=== PATIENT | male | born 2000 | race Caucasian/White ===

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

== ENCOUNTER 2022-01-03 10:30 | Emergency (ER) | payer SELFPAY ==
[2022-01-03 10:44] VITALS: BP 130/75; PULSE 81; RESP 16; TEMP 36.8; O2SAT 99; BMI 23.1
[2022-01-03 10:49] VITALS: BP 130/75; PULSE 81; RESP 16; TEMP 36.8; O2SAT 99
--- NOTE | 2022-01-03 11:08 | XRR_ITS ---
PROCEDURE INFORMATION: Exam: XR Right Hand Exam date and time: 01/03/2022 11:16 AM Age: 21 years old Clinical indication: Injury or trauma; Other: He had a board drop on it; Blunt trauma (contusions or hematomas); Right; Injury date: A week ago; Patient HX: --rt. Hand pain x 1 week ago TECHNIQUE: Imaging protocol: Radiologic exam of the Right hand. Views: 3 or more views. COMPARISON: CR XR elbow RT min 3V* [id number] 01/06/2021 10:09 PM FINDINGS: Bones/joints: Normal. Soft tissues: Normal. XR/XR hand RT min 3V* [id number] IMPRESSION: No acute findings.
--- NOTE | 2022-01-03 11:28 | W.ED.EXTPRO ---
HPI - Extremity Problem General: Chief complaint: Extremity Injury, Upper Stated complaint: Right hand pain/injury Time Seen by Provider: 01/03/22 11:01 History of Present Illness: 21-year-old male presents with complaints of injury to his right hand especially the right fifth knuckle. Patient reports that 4 days ago he had a board drop on it. He thinks he might of broke it. He presents today because his significant other medium. Patient complains of painful range of motion. He has some mild swelling. He reports no other injuries. Associated symptoms: Deny chest pain, fever(s) or rash Review of Systems Const: Denies: fever(s) or chills Eyes: Denies: change in vision Card: Denies: chest pain or palpitations Resp: Denies: dyspnea or productive cough GI: Denies: abdominal pain, nausea or vomiting Musc: Reports: joint pain and joint swelling Skin/Breast: Reports: erythema; Denies: rash Neuro: Denies: headache(s) or numbness in extremities Physical Exam Const: COMMON NORMALS: no acute distress, average body habitus and patient oriented x3 HENMT: COMMON NORMALS: normocephalic, atraumatic and hearing grossly normal bilaterally HEAD & SCALP: normocephalic and atraumatic Eye: COMMON NORMALS: Equal, round and reactive pupils present and EOMs intact bilaterally PUPIL: Yes Equal, round and reactive pupils present Resp: COMMON NORMALS: normal respiratory effort, No retractions and No use of accessory muscles Cardio: COMMON NORMALS: regular rate and regular rhythm RATE: regular rate RHYTHM: regular rhythm Extremity: RIGHT UPPER EXTREMITY: Yes hand & digits (Tenderness to palpation right fifth knuckle with some swelling and painful ) Right hand and digits: Yes ROM exam (Painful, mild decreased) Neuro: COMMON NORMALS: patient oriented x3 Skin: NARRATIVE SKIN EXAM: Mild erythema and swelling over fifth knuckle Course Vital Signs: Vital signs: Vital Signs Temperature 98.2 F 01/03/22 10:49 Pulse Rate 81 01/03/22 10:49 Respiratory Rate 16 01/03/22 10:49 Blood Pressure 130/75 01/03/22 10:49 Pulse Oximetry 99 01/03/22 10:49 Oxygen Delivery Me thod 01/03/22 10:49 MDM - Extremity (Nontraumatic) Medical Decision Making Patient with no acute findings on x-ray. Patient with a hand contusion. Should use Tylenol, warm moist heat, ibuprofen and topical lidocaine as needed. Patient stable and discharged home Lab Data Radiology Impressions Hand X-Ray 01/03/22 11:08 IMPRESSION: No acute findings. Discharge Plan Discharge Patient Disposition: Home Clinical Impression: Contusion of hand, right Condition: Stable Discharge Orders: Discharge ED (Routine); Ordered 01/03/22 Ordered By: Paresh Purdy Discharge Diet: Usual diet Discharge Activity: Increase activity as tolerated Patient Instructions: Contusion, Opioid Safety, Pain Management Activity Restrictions/Additional Instructions: Warm moist heat 20 minutes at a time 3-4 times daily as needed for pain 4% topical lidocaine with menthol to affected area as directed on package as needed for pain Tylenol or ibuprofen as needed Follow-up with your primary care provider in 10 days if symptoms or not improving Coding Level of Care Code ED Retail Salesman for Dede Fwd Exam Detailed
[2022-01-03] MEDS: ketorolac 30 mg/mL INJ 15 MG IM (12:05)
== END 2022-01-03 12:23 | disposition home or self-care (01) ==
PROVIDERS: Emergency Provider Student in an Organized Health Care Education/Training Program
DX: S60.221A Contusion of right hand, initial encounter (principal); W20.8XXA Other cause of strike by thrown, projected or falling object, initial encounter
CPT/HCPCS: 73130; 96372; 99284; J1885